=== PATIENT | male | born 1940 | race Caucasian/White ===

== ENCOUNTER 2021-07-08 11:49 | Emergency (ER) | payer OTHER, MEDICARE ==
[~2021-07-08] VITALS: Ht 177.8 cm; Wt 71.7 kg
[2021-07-08] MEDS ORDERED: LIDOCAINE HCL MPF 1% 5ML VIAL ONE (12:44)
[2021-07-08] MEDS ORDERED: AMOX1TAB16 PO (12:56)
[2021-07-08 13:00] VITALS: BP 128/74
[2021-07-08] MEDS ORDERED: LIDOCAINE HCL MPF 1% 5ML VIAL IM SCH (13:00)
[2021-07-08] MEDS ORDERED: TETANUS/DIPHTHERIA TOXOID [ADULT] 0.5 ML VIAL IM ONE ×2 (13:34→14:00)
== END 2021-07-08 14:03 | disposition home or self-care (01) ==
LOC: EDH 11:49
DX: S63.283A Dislocation of proximal interphalangeal joint of left middle finger, initial encounter (principal); Z79.899 Other long term (current) drug therapy; S91.339A Puncture wound without foreign body, unspecified foot, initial encounter; W18.39XA Other fall on same level, initial encounter; Y93.89 Activity, other specified; Y92.89 Other specified places as the place of occurrence of the external cause; Y99.8 Other external cause status
CPT/HCPCS: 26770; 73120; 73130; 90471; 90714; 99284; J3490